=== PATIENT | male | born 1995 ===

== ENCOUNTER 2018-04-14 14:11 | Emergency (ER) | payer OTHER ==
[2018-04-14 14:12] VITALS: BMI 19.2
[2018-04-14 14:25] VITALS: BP 99/60; PULSE 86; RESP 16; TEMP 98.7; O2SAT 100
[2018-04-14] MEDS ORDERED: Tdap Vaccine 0.5 ml Vial (10-64 yrs) IM ONE ×2 (14:28→14:40)
[2018-04-14] MEDS ORDERED: Lidocaine 1% (10 ml) Inj INFIL STA (14:31)
[2018-04-14] MEDS ORDERED: Lidocaine 1% Inj (20ml) ONE (14:37)
[2018-04-14] MEDS ORDERED: Lidocaine 1% Inj (20ml) INFIL STA (14:51)
--- NOTE | 2018-04-14 15:24 | ED PDOC ---
Upper Extremity Pain/Injury Time Seen by Provider: 04/14/18 14:22 Chief Complaint (Nursing): Finger,Hand,&Wrist Chief Complaint (Provider): Fourth Digit Injury History Per: Patient, Other (friend) History/Exam Limitations: no limitations Onset/Duration Of Symptoms: Hrs (happened at 11:00) Current Symptoms Are (Timing): Still Present Additional Complaint(s): 22 year old male presents to the ED with a friend stating he fell at 11:00 this morning and got his left fourth digit closed in a window. Patient came in for evaluation of the laceration sustained and has no other complaints at this time. Tetanus up to date. PMD: none provided Past Medical History Reviewed: Historical Data, Nursing Documentation, Vital Signs Vital Signs: Last Vital Signs Temp 98.7 F 04/14/18 14:20 Pulse 86 04/14/18 14:20 Resp 16 04/14/18 14:20 BP 99/60 L 04/14/18 14:20 Pulse Ox 100 04/14/18 14:20 - Medical History PMH: No Chronic Diseases - Surgical History Surgical History: No Surg Hx - Family History Family History: States: Unknown Family Hx - Social History Current smoker - smoking cessation education provided: No Alcohol: Social Drugs: Denies - Immunization History Hx Tetanus Toxoid Vaccination: No - Home Medications Home Medications: Ambulatory Orders Medication Instructions Recorded Docusate [Colace] 100 mg PO DAILY #10 cap 07/19/16 Hydrocortisone 2.5% (Rectal) 30 applic MD BID #1 tube 07/19/16 [Anusol-HC] - Allergies Allergies/Adverse Reactions: Allergies Allergy/AdvReac Type Severity Reaction Status Date / Time No Known Allergies Allergy Verified 04/14/18 14:19 Review of Systems ROS Statement: Except As Marked, All Systems Reviewed And Found Negative Skin: Positive for: Other (laceration to left lateral digit) Physical Exam - Reviewed Nursing Documentation Reviewed: Yes Vital Signs Reviewed: Yes - Physical Exam Appears: Positive for: No Acute Distress Head Exam: Positive for: ATRAUMATIC, NORMOCEPHALIC Skin: Positive for: Normal Color, Warm, Dry Extremity: Positive for: Capillary Refill (less than 2 seconds), Other (curvy linear laceration to left distal laterl fourth digit, no active bleeding) Neurologic/Psych: Positive for: Alert, Oriented (x3). Negative for: Motor/ Sensory Deficits - ECG O2 Sat by Pulse Oximetry: 100 (RA) Pulse Ox Interpretation: Normal Medical Decision Making Medical Decision Making: Initial Impression: laceration to left fourth digit, possible break Time: 14:28 Initial Plan: --Lidocaine Hydrochloride 1% 5 ml INFIL --Tetanus 0.5ml IM --Left 4th Digit XR XR read and viewed by me, no fracture noted. Patient made aware of results. Sutures placed (see procedure note) and patient tolerated the procedure well. Scribe Attestation Documented by Melisa Parker acting as a scribe for Alisa Gonzalez PA-C. Provider Attestation All medical record entries made by the Scribe were at my direction and personally dictated by me. I have reviewed the chart and agree that the record accurately reflects my personal performance of the history, physical exam, medical decision making, and the department course for this patient. I have also personally directed, reviewed, and agree with the discharge instructions and disposition. Procedures - Laceration/Wound Repair Left Finger Wound Length (cm): 1.5 Wound's Depth, Shape: linear (curvy) Wound Explored: clean Irrigated w/ Saline (ccs): 1 Anesthesia: 1% Lidocaine Wound Repaired With: Sutures Suture Size/Type: 4:0, proline Number of Sutures: 3 Wound Complexity: Simple Sterile Dressing Applied?: Yes Disposition - Clinical Impression Clinical Impression: Finger laceration, Tetanus toxoid vaccination administered at current visit - Patient ED Disposition Is Patient to be Admitted: No Counseled Patient/Family Regarding: Studies Performed, Diagnosis, Need For Followup - Disposition Disposition: Routine/Home Disposition Time: 15:25 Condition: STABLE Additional Instructions: Do not get wet for 24-48 hours. Keep clean and dry for antibiotic ointment twice a day. Suture removal in 10 days. Return sooner for sign of infection including increased pain, redness or drainage. Instructions: Laceration Repair With Stitches (DC) Forms: [employer] (Uzbek) Print Language: MAURITIAN
--- NOTE | 2018-04-14 16:00 | RAD ---
PROCEDURE: Left Hand Radiographs. HISTORY: crush injury with laceration COMPARISON: None. FINDINGS: BONES: No evidence of a displaced fracture. JOINTS: Normal. No osteoarthritic changes. SOFT TISSUES: Soft tissue laceration of the tuft of the 4th digit. Punctate radiopaque density seen within the soft tissues. OTHER FINDINGS: None. IMPRESSION: Soft tissue laceration at the tuft of the 4th digit with punctate radiopaque densities. Direct visualization recommended. No evidence of acute displaced fracture.
== END 2018-04-14 15:30 | disposition home or self-care (01) ==
LOC: H.ER 14:11
DX: S61.215A Laceration without foreign body of left ring finger without damage to nail, initial encounter (principal); W23.0XXA Caught, crushed, jammed, or pinched between moving objects, initial encounter; Y92.89 Other specified places as the place of occurrence of the external cause

== ENCOUNTER 2018-04-28 15:58 | Emergency (ER) | payer SELFPAY ==
[2018-04-28 15:58] VITALS: BMI 19.2
[2018-04-28 16:54] VITALS: BP 100/58; PULSE 63; RESP 16; TEMP 98.3; O2SAT 97
--- NOTE | 2018-04-28 17:01 | ED PDOC ---
HPI: Wound Care - HPI Time Seen by Provider: 04/28/18 16:56 Chief Complaint (Nursing): Suture/Staple Removal Chief Complaint (Provider): suture removal History Per: Patient Additional Complaint(s): 22-year-old male presents for suture removal of laceration to left fourth digit that was repaired on April 14. Patient denies pain or drainage from affected area. Tetanus is up-to-date. PMD: none Past Medical History Reviewed: Historical Data, Nursing Documentation, Vital Signs Vital Signs: Last Vital Signs Temp 98.3 F 04/28/18 16:51 Pulse 63 04/28/18 16:51 Resp 16 04/28/18 16:51 BP 100/58 L 04/28/18 16:51 Pulse Ox 97 04/28/18 16:51 - Medical History PMH: No Chronic Diseases - Surgical History Surgical History: No Surg Hx - Family History Family History: States: No Known Family Hx - Living Arrangements Living Arrangements: With Family - Social History Current smoker - smoking cessation education provided: No Alcohol: None Drugs: Denies - Immunization History Hx Tetanus Toxoid Vaccination: Yes - Home Medications Home Medications: Ambulatory Orders Medication Instructions Recorded Docusate [Colace] 100 mg PO DAILY #10 cap 07/19/16 Hydrocortisone 2.5% (Rectal) 30 applic [place] BID #1 tube 07/19/16 [Anusol-HC] - Allergies Allergies/Adverse Reactions: Allergies Allergy/AdvReac Type Severity Reaction Status Date / Time No Known Allergies Allergy Verified 04/28/18 16:51 Review of Systems ROS Statement: Except As Marked, All Systems Reviewed And Found Negative Skin: Positive for: Other (Removal of sutures from left fourth digit) Physical Exam - Reviewed Nursing Documentation Reviewed: Yes Vital Signs Reviewed: Yes - Physical Exam Appears: Positive for: Well, Non-toxic, No Acute Distress Skin: Positive for: Normal Color. Negative for: Rash Eye Exam: Positive for: Normal appearance Extremity: Positive for: Other (Sutured, well-healed laceration noted to left fourth digit, wound is clean, dry and intact, no infection) Neurologic/Psych: Positive for: Alert, Oriented - ECG O2 Sat by Pulse Oximetry: 97 Pulse Ox Interpretation: Normal Medical Decision Making Medical Decision Makin22 year old here for suture removal All sutures removed from affected digit without difficulty. Wound is well- healed. Wound care instructions given. Disposition - Clinical Impression Clinical Impression: Removal of suture - Patient ED Disposition Is Patient to be Admitted: No Counseled Patient/Family Regarding: Need For Followup - Disposition Referrals: [facility] [Outside] Disposition: Routine/Home Disposition Time: 17:01 Condition: STABLE Additional Instructions: Keep wound clean and dry. Follow up as needed with primary care doctor or clinic. Instructions: Stitches Removal Forms: [employer] (Micronesian) Print Language: RUSSIAN
== END 2018-04-28 17:30 | disposition home or self-care (01) ==
LOC: H.ER 15:58
DX: Z48.02 Encounter for removal of sutures (principal)